=== PATIENT | male | born 1985 | race Native Hawaiian/Other Pacific Islander ===

== ENCOUNTER 2018-07-03 17:39 | Outpatient (CLI) | payer OTHER | END 2018-07-03 17:46 | disposition short-term general hospital (02) | LOC: AMB 17:39 | DX: F18.10 Inhalant abuse, uncomplicated (principal) | CPT/HCPCS: A0425; A0427 ==

== ENCOUNTER 2018-07-03 17:49 | Emergency (ER) | payer OTHER ==
[~2018-07-03] VITALS: Ht 160 cm; Wt 72.6 kg
[2018-07-03 17:49] VITALS: TEMP 99.1
[2018-07-03 18:43] LABS: PLATELET COUNT 289 K/uL (142-355)
[2018-07-03 18:54] LABS: POTASSIUM 3.2 mmol/L (3.6-5.2)
[2018-07-03 19:45] VITALS: BP 104/78
== END 2018-07-03 20:00 | disposition home or self-care (01) ==
LOC: ED 17:55
PROVIDERS: Emergency Medicine
DX: T65.892A Toxic effect of other specified substances, intentional self-harm, initial encounter (principal)
CPT/HCPCS: 36415; 80053; 80307; 85027; 93005; 99283

== ENCOUNTER 2018-07-30 15:48 | Outpatient (CLI) | payer OTHER | END 2018-07-30 15:57 | disposition short-term general hospital (02) | LOC: AMB 15:48 | DX: T65.892A Toxic effect of other specified substances, intentional self-harm, initial encounter (principal); F18.129 Inhalant abuse with intoxication, unspecified; Y92.013 Bedroom of single-family (private) house as the place of occurrence of the external cause | CPT/HCPCS: A0425; A0429 ==

== ENCOUNTER 2018-07-30 16:02 | Emergency (ER) | payer OTHER ==
[~2018-07-30] VITALS: Ht 160 cm; Wt 72.6 kg
[2018-07-30 17:23] LABS: PLATELET COUNT 279 K/uL (142-355)
[2018-07-30 17:30] LABS: POTASSIUM 4.8 mmol/L (3.6-5.2)
[2018-07-31 23:25] VITALS: BP 145/86; TEMP 98.1
== END 2018-08-01 00:29 | disposition other institution (70) ==
LOC: ED 16:02
PROVIDERS: Family Medicine
DX: T14.91XA Suicide attempt, initial encounter (principal); T65.892A Toxic effect of other specified substances, intentional self-harm, initial encounter; Y92.89 Other specified places as the place of occurrence of the external cause; Y93.89 Activity, other specified
CPT/HCPCS: 36415; 80053; 80307; 80320; 80329; 81000; 85027; 99285

== ENCOUNTER 2018-08-12 16:49 | Outpatient (CLI) | payer OTHER | END 2018-08-12 19:44 | disposition home or self-care (01) | LOC: RAD 16:49 | DX: R05 Cough (principal) ==

== ENCOUNTER 2018-10-30 00:51 | Outpatient (CLI) | payer OTHER | END 2018-10-30 01:10 | disposition short-term general hospital (02) | LOC: AMB 00:51 | DX: S01.112A Laceration without foreign body of left eyelid and periocular area, initial encounter (principal); T14.8XXA Other injury of unspecified body region, initial encounter; R52 Pain, unspecified; R53.83 Other fatigue; R41.0 Disorientation, unspecified; V09.00XA Pedestrian injured in nontraffic accident involving unspecified motor vehicles, initial encounter; Y92.413 State road as the place of occurrence of the external cause | CPT/HCPCS: A0425; A0427 ==